=== PATIENT | female | born 1990 | race Caucasian/White ===

== ENCOUNTER 2018-06-08 09:45 | Outpatient (CLI) | payer OTHER | END 2018-06-08 09:46 | disposition EMS.NT | LOC: EMS 09:45 | PROVIDERS: ATTEND Surgery | DX: R11.10 Vomiting, unspecified (principal) ==

== ENCOUNTER 2018-06-08 10:38 | Emergency (ER) | payer OTHER ==
[2018-06-08] MEDS ORDERED: PROMETHAZINE INJ 12.5 MG in SODIUM CHLORIDE 0.9% 50 ML IV STA (10:51)
[2018-06-08] MEDS ORDERED: SODIUM CHLORIDE 0.9% 1,000 ML IV ONE (10:51)
[2018-06-08] MEDS ORDERED: KETOROLAC 30 MG/ML VIAL IVP STA (10:51)
[2018-06-08] MEDS ORDERED: MORPHINE 2 MG/ML CARPUJECT IVP STA (10:52)
--- NOTE | 2018-06-08 10:55 | ED Physician Documentation ---
PD HPI ABD PAIN - Stated complaint Stated Complaint: FLANK PX - Chief complaint Chief Complaint: Abd Pain - History obtained from History obtained from: Patient - History of Present Illness Timing - onset: Yesterday Timing - details: Still present Quality: Pain Radiation: Left flank Associated symptoms: Nausea, Vomiting Similar symptoms before: Diagnosis (History of kidney stones.) - Treatment prior to arrival Treatment prior to arrival: Aleve without relief. - Additional information Additional information: The patient is a 28-year-old female with history of kidney stones, who presents via ambulance complaining of left flank pain. Her pain started yesterday, and is worse today. She states it feels like a kidney stone. She has had associated nausea and vomiting. She denies fever or dysuria. Her last kidney stone was about 1 year ago. Review of Systems Constitutional: denies: Fever Nose: denies: Congestion Throat: denies: Sore throat Cardiac: denies: Chest pain / pressure Respiratory: denies: Dyspnea, Cough GI: reports: Abdominal Pain, Nausea, Vomiting. denies: Diarrhea : denies: Dysuria Skin: denies: Rash Musculoskeletal: reports: Back pain (left flank) Neurologic: denies: Headache PD PAST MEDICAL HISTORY - Past Medical History Cardiovascular: None Respiratory: None Endocrine/Autoimmune: None GI: None CORRECTION WARDEN: None : None HEENT: None Psych: None Musculoskeletal: None Derm: None - Past Surgical History Past Surgical History: No - Present Medications Home Medications: Ambulatory Orders Medication Instructions Recorded Confirmed Oxycodone HCl/Acetaminophen 1 - 2 each PO Q6H PRN #10 tablet 06/08/18 [Percocet 5-325 mg Tablet] Promethazine [Phenergan] 25 mg PO Q6H PRN #10 tab 06/08/18 Sertraline HCl [Zoloft] 100 mg PO DAILY 06/08/18 06/08/18 Tamsulosin HCl [Flomax] 0.4 mg PO DAILY #7 cap.er.24h 06/08/18 Topiramate 1 tab PO DAILY 06/08/18 06/08/18 - Allergies Allergies/Adverse Reactions: Allergies Allergy/AdvReac Type Severity Reaction Status Date / Time bee venom protein (honey bee) Allergy Edema Verified 06/08/18 10:44 shellfish derived Allergy Hives Verified 06/08/18 10:44 - Social History Does the pt smoke?: No Smoking Status: Never smoker Does the pt drink ETOH?: No Does the pt have substance abuse?: No - Immunizations Immunizations are current?: Yes - POLST Patient has POLST: No PD ED PE NORMAL - Vitals Vital signs reviewed: Yes (normal) - General General: Alert and oriented X 3, Well developed/nourished - HEENT HEENT: Atraumatic, Moist mucous membranes - Neck Neck: Supple, no meningeal sign, No adenopathy - Cardiac Cardiac: RRR, No murmur - Respiratory Respiratory: No respiratory distress, Clear bilaterally - Abdomen Abdomen: Normal bowel sounds, Soft, Non tender - Back Back: No spinal TTP, Other (Left flank tenderness to palpation.) - Derm Derm: No rash - Extremities Extremities: No edema, No calf tenderness / cord - Neuro Neuro: Alert and oriented X 3, No motor deficit, Normal speech Results - Vitals Vitals: Vital Signs - 24 hr 06/08/18 06/08/18 06/08/18 10:41 10:51 12:13 Temperature 37.1 C 36.5 C Heart Rate 67 57 L 62 Respiratory 14 18 16 Rate Blood Pressure 122/87 H 88/66 L 88/56 L O2 Saturation 98 96 100 Oxygen O2 Source Room air - Rads (name of study) CT abd/pelvis Radiology: Prelim report reviewed, EMP read contemporaneously, See rad report (3 mm ureteral stone at the left UVJ. With mild upstream hydronephrosis.) PD MEDICAL DECISION MAKING - ED course Complexity details: reviewed results, re-evaluated patient, considered differential, d/w patient ED course: The patient's presentation is most consistent with left distal ureteral stone, which is visualized on CT scan. There is no evidence of urinary tract infection on urinalysis. Treatment in the emergency department included administration of normal saline 1 L IV, ketorolac 30 mg IV, Phenergan 12.5 mg IV, and morphine 4 mg IV. Her pain completely resolved with the above treatment. She is being discharged with prescriptions for Phenergan, Flomax, and for Percocet, 10 tablets. I discussed with her the diagnosis, symptomatic treatment and outpatient follow-up, as well as potentially worrisome signs or symptoms that should prompt reevaluation in the emergency department. Departure - Departure Disposition: 01 Home, Self Care Clinical Impression: Renal colic on left side, Left ureteral calculus Condition: Stable Instructions: ED Stone Renal W Colic Follow-Up: LORENZO Salcedo [Provider Group] Prescriptions: Oxycodone HCl/Acetaminophen [Percocet 5-325 mg Tablet] 1 - 2 each PO Q6H PRN #10 tablet PRN Reason: pain Promethazine [Phenergan] 25 mg PO Q6H PRN #10 tab PRN Reason: Nausea / Vomiting Tamsulosin HCl [Flomax] 0.4 mg PO DAILY #7 cap.er.24h Comments: Drink plenty of fluids. Take Flomax daily as prescribed. You can use Phenergan as prescribed if needed for nausea. You can use Percocet as prescribed if needed for pain. You can also take ibuprofen, up to 800 mg 3 times daily for its anti- inflammatory effect. Follow-up with your primary physician within 1 week. Call to schedule an appointment. Return to the emergency department if you develop recurrent or increasing pain, persistent vomiting, fever, or otherwise worsening symptoms.
--- NOTE | 2018-06-08 12:13 | CT Report ---
Reason: Left flank pain; h/o kidney stones. Procedure Date: 06/08/2018 Accession Number: [id number] / [id number] Procedure: CT - Abdomen/Pelvis WO CPT Code: FULL RESULT: EXAM: CT ABDOMEN AND PELVIS (CT KUB) EXAM DATE: 06/08/2018 11:40 AM. CLINICAL HISTORY: Left flank pain. History of kidney stones. COMPARISONS: None. TECHNIQUE: Routine axial helical CT imaging was performed through the abdomen and pelvis without IV contrast. Reconstructions: Coronal and sagittal. In accordance with CT protocol optimization, one or more of the following dose reduction techniques were utilized for this exam: automated exposure control, adjustment of mA and/or KV based on patient size, or use of iterative reconstructive technique. FINDINGS: Lung Bases: Unremarkable. Right Kidney/Ureter: No stones, hydronephrosis, or hydroureter. No perinephric fat stranding. Left Kidney/Ureter: There is a 3 mm calculus at the left ureterovesicular junction with mild left hydroureteronephrosis and expected periureteral and perinephric fat stranding, mild. A punctate, less than 1 mm calculus is also seen in the left renal collecting system. Other Solid Organs: Noncontrast images of the solid organs are grossly unremarkable. Gallbladder/Bile Ducts: Unremarkable. Peritoneal Cavity: No free fluid, free air or nestor adenopathy. Bowel is grossly unremarkable. Pelvic Organs: Intrauterine device is seen in expected position. Vasculature: Unremarkable. Other: None. IMPRESSION: 3 mm ureteral calculus at the left ureterovesicular junction with mild upstream hydroureteronephrosis. [facility] The call report notification system was initiated by Dr. Alvin Lake at 12:10 PM on 06/08/2018. The above call report findings of left-sided calculus in the distal ureter were discussed with Errol Gonzalez by Dr. Alvin Lake at 12:12 PM on 06/08/2018.
[2018-06-08 12:43] LABS: BILIRUBIN,URINE NEGATIVE (NEGATIVE); GLUCOSE, URINE (UA) NEGATIVE (NEGATIVE); KETONES,URINE (UA) 40 mg/dL (NEGATIVE); LEUKOCYTE ESTERASE, URINE NEGATIVE (NEGATIVE); NITRITE,URINE NEGATIVE (NEGATIVE); OCCULT BLOOD,URINE MODERATE (NEGATIVE); PROTEIN,URINE NEGATIVE (NEGATIVE); UROBILINOGEN,URINE 0.2 (NORMAL) E.U./dL (NORMAL)
[2018-06-08 12:44] LABS: CLARITY,URINE CLEAR (CLEAR)
[2018-06-08 12:51] VITALS: BP 95/54
[2018-06-08 13:03] LABS: BACTERIA,URINE Many /HPF (None Seen); SQUAMOUS EPITHELIAL CELL,UR MANY Squamous (<= Few)
== END 2018-06-08 13:03 | disposition home or self-care (01) ==
LOC: EDUNIT# → ED 10:38
DX: N13.2 Hydronephrosis with renal and ureteral calculous obstruction (principal)
CPT/HCPCS: 74176; 81001; 96365; 96375; 99283; 99284; J7040; 81003; 87086